=== PATIENT | female | born 1960 | race Caucasian/White ===

== ENCOUNTER → 2022-05-09 | Day surgery (SDC) | payer OTHER ==
[~2022-05-09] VITALS: Ht 167.6 cm; Wt 85.7 kg
[~2022-05-09] MED LIST: CETIRIZINE HCL10 MG PO; VENTOLIN HFA IN18 GM INH
== END | disposition home or self-care (01) ==
LOC: FAS 06:01
DX: M75.02 Adhesive capsulitis of left shoulder (principal); Z91.041 Radiographic dye allergy status
CPT/HCPCS: 97162; 97530-GP; J1100; J2250; J2704; J2795; J7120